=== PATIENT | female | born 1960 | race Caucasian/White ===

== ENCOUNTER 2017-07-14 14:26 | Day surgery (SDC) | payer OTHER ==
[~2017-07-14] VITALS: Ht 165.1 cm; Wt 65.4 kg
[2017-07-14 15:25] VITALS: Ht 165.1 cm; Wt 65.4 kg
[2017-07-14] MEDS ORDERED: ATENOLOL (15:27)
[2017-07-14] MEDS ORDERED: LISINOPRIL (15:27)
[2017-07-14] MEDS ORDERED: ATORVASTATIN (15:27)
--- NOTE | 2017-07-14 15:58 | OPPN ---
Date/Time of Note Date/Time of Note DATE: 07/14/17 TIME: 15:56 Operative Report Preoperative Diagnosis Screening colonoscopy Postoperative Diagnosis Normal: Colonoscopy Operation/Procedure Performed Colonoscopy Surgeon see signature line molding line assistant None Anesthesia: moderate sedation (Versed 4 mg fentanyl 100 mcg Demerol 25 mg moderate sedation time 20 minutes) Estimated blood loss: none Transfusion Required none Specimen None Grafts/Implants none Complications none REINA FINCH MD Jul 14, 2017 15:58
--- NOTE | 2017-07-14 15:58 | OPPN ---
Date/Time of Note Date/Time of Note DATE: 07/14/17 TIME: 15:56 Operative Report Preoperative Diagnosis Screening colonoscopy Postoperative Diagnosis Normal: Colonoscopy Operation/Procedure Performed Colonoscopy Surgeon see signature line general assistant None Anesthesia: moderate sedation (Versed 4 mg fentanyl 100 mcg Demerol 25 mg moderate sedation time 20 minutes) Estimated blood loss: none Transfusion Required none Specimen None Grafts/Implants none Complications none REINA FINCH MD Jul 14, 2017 15:58
--- NOTE | 2017-07-14 15:58 | OPPN ---
Date/Time of Note Date/Time of Note DATE: 07/14/17 TIME: 15:56 Operative Report Preoperative Diagnosis Screening colonoscopy Postoperative Diagnosis Normal: Colonoscopy Operation/Procedure Performed Colonoscopy Surgeon see signature line assistant teacher primary None Anesthesia: moderate sedation (Versed 4 mg fentanyl 100 mcg Demerol 25 mg moderate sedation time 20 minutes) Estimated blood loss: none Transfusion Required none Specimen None Grafts/Implants none Complications none REINA FINCH MD Jul 14, 2017 15:58
[2017-07-14] MEDS ORDERED: MIDAZOLAM 1 MG/ML 2 ML INJ ONE ×2 (15:59→16:00)
[2017-07-14] MEDS ORDERED: FENTAnyl 50 MCG/ML VIAL ONE (15:59)
[2017-07-14] MEDS ORDERED: MEPERIDINE 50 MG INJ ONE (16:00)
[2017-07-14 16:22] VITALS: BP 116/57; PULSE 84; RESP 20
--- NOTE | 2017-07-17 07:16 | GILP ---
DATE OF PROCEDURE: PREOPERATIVE DIAGNOSIS: Screening colonoscopy. PROCEDURE DONE: Colonoscopy. POSTOPERATIVE DIAGNOSIS: Normal colonoscopy. DESCRIPTION OF PROCEDURE: The patient was put in left lateral decubitus after obtaining informed co nsent, was sedated with 100 mcg of fentanyl, 4 mg IV Versed, 25 mg IV Demerol and then advanced a pe diatric Olympus video colonoscope carefully all the way to cecum. Appendiceal opening and ileocecal valve were identified. Cecum, ascending colon, transverse colon, descending colon, sigmoid colon n ormal. Rectosigmoid mild fixation due to previous hysterectomy, but the rectum itself is normal inc luding retroflexion. Postop, patient had no complication. RECOMMENDATION: Repeat colonoscopy in 10 years. Follow up with you as outpatient. Dictated By: REINA CAMARLILO Conf#: [id number] DID#: [id number]
--- NOTE | 2017-07-17 07:16 | GILP ---
DATE OF PROCEDURE: PREOPERATIVE DIAGNOSIS: Screening colonoscopy. PROCEDURE DONE: Colonoscopy. POSTOPERATIVE DIAGNOSIS: Normal colonoscopy. DESCRIPTION OF PROCEDURE: The patient was put in left lateral decubitus after obtaining informed co nsent, was sedated with 100 mcg of fentanyl, 4 mg IV Versed, 25 mg IV Demerol and then advanced a pe diatric Olympus video colonoscope carefully all the way to cecum. Appendiceal opening and ileocecal valve were identified. Cecum, ascending colon, transverse colon, descending colon, sigmoid colon n ormal. Rectosigmoid mild fixation due to previous hysterectomy, but the rectum itself is normal inc luding retroflexion. Postop, patient had no complication. RECOMMENDATION: Repeat colonoscopy in 10 years. Follow up with you as outpatient. Dictated By: REINA CAMARILLO Conf#: [id number] DID#: [id number]
== END 2017-07-14 21:01 | disposition home or self-care (01) ==
LOC: GIL 14:26
PROVIDERS: ATTEND Internal Medicine
DX: Z12.11 Encounter for screening for malignant neoplasm of colon (principal); I10 Essential (primary) hypertension; E78.5 Hyperlipidemia, unspecified
CPT/HCPCS: 45378; J2175; J2250; J3010; Z7610

== ENCOUNTER 2017-09-15 13:57 | Day surgery (SDC) | END 2017-09-15 15:38 | disposition home or self-care (01) ==